=== PATIENT | female | born 1965 | race Caucasian/White ===

== ENCOUNTER 2018-07-13 06:38 | Inpatient (IN) ==
[2018-07-13] MEDS ORDERED: Metoprolol Tartrate 25 MG Tablet PO ONE (07:45)
[2018-07-13] MEDS ORDERED: Chlorhexidine 4% Topical 120 APPLIC/120 ML Bottle TOPICAL SCH (07:45)
[2018-07-13] MEDS ORDERED: Chlorhexidine Gluconate 2% 1 Pack (2 Cloths) TOPICAL ONE (07:45)
[2018-07-13] MEDS ORDERED: Sodium Chlor 0.9% Inj 500 ML IV.CONT ONE (07:45)
[2018-07-13] MEDS ORDERED: Vancomycin Inj 1,000 MG in Sodium Chlor 0.9% Inj 250 ML IV.SIG SCH (08:00)
[2018-07-13] MEDS ORDERED: Dexamethasone Inj 20 MG/5 ML Vial IV.PUSH ONE (08:00)
[2018-07-13] MEDS ORDERED: fentaNYL Citrate Inj 100 MCG/2 ML Ampul ONE ×2 (08:20→13:09)
[2018-07-13] MEDS ORDERED: Bupivacaine Liposomal PF 1.3% Inj 20 ML Vial ONE (08:21)
[2018-07-13] MEDS ORDERED: ceFAZolin 2 GM Premix Inj 2 GM/50 ML PIGGYBACK IV.SIG SCH (08:30)
[2018-07-13] MEDS ORDERED: Sodium Chlor 0.9% Inj 73.07 ML, Ropivacaine 0.5% PF Inj 24.63 ML, Ketorolac Inj 30 MG, ... P-ARTICULR SCH ×5 (08:30)
[2018-07-13] MEDS ORDERED: SODIUM CHLOR 0.9% IV.SIG SCH ×2 (09:00→13:00)
[2018-07-13] MEDS ORDERED: TRANEXAMIC ACID IV.SIG SCH ×2 (09:00→13:00)
[2018-07-13] MEDS ORDERED: Aluminum/Magnesium/Simethacone Susp 30 ML UDC PO PRN (11:52)
[2018-07-13] MEDS ORDERED: Morphine Inj 4 MG/ML Vial IV.PUSH PRN (11:52)
[2018-07-13] MEDS ORDERED: Bisacodyl 10 MG Supp RECTAL PRN (11:52)
[2018-07-13] MEDS ORDERED: Post-op Orders (for Pharmacy) OTHER STA (11:52)
--- NOTE | 2018-07-13 11:55 | P.OP ---
- Preoperative Diagnosis (1) Primary localized osteoarthritis of right knee - Postoperative Diagnosis (1) Primary localized osteoarthritis of right knee Date of procedure: 07/13/18 Procedure: Right total knee arthroplasty [facility], [facility] Surgeon: Charli Villalobos MD Grain Merchandiser: SHELIA Ying The surgical procedure was assisted by my Advanced Registered Nurse Practitioner. My PROPERTY TECHNICIAN presence was necessary throughout this case for the manipulation and positioning of the surgical extremity. My PROPERTY TECHNICIAN was assisting me throughout the duration of this procedure. The skill set of an Advance Registered Nurse Practitioner was medically necessary to complete this procedure. During the surgical case, the surgical technician was working at the back table and the Advance Registered Nurse Practitioner was directly assisting me. Operation and Findings: IMPLANTS: DePuy Attune: Patella: size 32. Femur, posterior stabilized size 6. Tibia, rotating platform size 5. Tibial insert, rotating platform, posterior stabilized size 6 mm thickness. ESTIMATED BLOOD LOSS: 150 cc TOURNIQUET TIME: 39 minutes at 250 mmHg pressure. JUSTIFICATION FOR PROCEDURE: The patient has end-stage osteoarthritis to the knee. There is an attached conservative measures pathway form in the chart that describes the nonoperative measures that were undertaken prior to consideration of surgical management. The patient understood the risks and benefits of surgical management. See my office notes for further details PROCEDURE: The patient was brought back to the operative theatre. Adequate anesthesia was obtained. The patient received intravenous vancomycin and Ancef. The lower extremity was prepped and draped in the usual sterile fashion.The leg was exsanguinated, the tourniquet was raised. A standard anterior incision was performed followed by medial parapatellar arthrotomy was performed. End-stage arthritis was identified. Osteotomy of the patella was performed. We drilled holes for the patella. We trialed the patella component. We placed an intramedullary guide into the distal femur. We ultimately resected 13 mm off of the distal femur in 5 degrees of valgus. The remnants of the ACL and PCL were resected. Osteotomy of the proximal tibia was performed, resecting 5 mm off of the medial side. This was done with 3 degrees of posterior slope using an extramedullary guide. The distal end of the guide was placed in the mid aspect of the ankle. The femur was sized, and four chamfer cuts were completed in 3 of external rotation. We then cut the central box in the distal femur to replace the PCL. We resected the remnants of the menisci and removed osteophytes off of the femur and tibia. We then trialed the knee. We punched the tibia for the keel, and then used standard technique to cement in components. Excess cement was removed. We trialed the knee again and the final polyethylene thickness was chosen to provide extension to 0 degrees, and flexion of 140 degrees to gravity. The ligaments were appropriately balanced. Lateral release was necessary to obtain excellent patellofemoral tracking. The tourniquet was released and adequate hemostasis was obtained. An intra- articular injection of a ropivacaine cocktail was injected. The posterior knee was inspected for excess cement, which was removed. The final polyethylene was put into position after thorough irrigation. We then closed deep fascia with a #2 Stratafix followed by skin with 2-0 Vicryl followed by Dermabond dressing. Postop plan is to weight-bear as tolerated. DVT prophylaxis will be performed with SCDs, JESSY hose, early mobilization, and aspirin.
[2018-07-13] MEDS ORDERED: *Meperidine Inj 25 MG/ML Vial PERIprocedural Use ONLY ONE (12:26)
[2018-07-13] MEDS: Sod Chloride 0.9% Inj 1,000 ML IV.CONT SCH (12:45)
--- NOTE | 2018-07-13 12:53 | XR ---
EXAM DATE: 07/13/2018 12:47 PM EST AGE/SEX: 52 years / Female INDICATIONS: Post op, right total knee replacement. CLINICAL DATA: This is the patient's initial encounter. Patient reports that signs and symptoms have been present for 1 day and indicates a pain score of 4/10. MEDICAL/SURGICAL HISTORY: None. None. COMPARISON: No prior exams available for comparison. FINDINGS: AP and lateral views of the right knee were obtained and demonstrate the patient is status post arthr oplasty. The femoral acetabular components are intact and in normal alignment. There are postoperativ e change involving the patella. There is soft tissue swelling and gas noted. CONCLUSION: Expected postoperative changes status post arthroplasty. Electronically signed by: Jr Alexis MD 07/13/2018 12:52 PM EST
[2018-07-13] MEDS ORDERED: *morphine SULFATE 10 MG/ML PERIprocedure ONLY ONE (13:15)
[2018-07-13] MEDS: ceFAZolin 1 GM Premix Inj 1 GM/50 ML PIGGYBACK IV.SIG SCH ×2 (15:45→22:02)
--- NOTE | 2018-07-13 16:19 | P.DCO ---
- Physical Therapy Physical Therapy: Gait training, Transfer training, bed to chair Knee: Total knee Right Lower Extremity Weight Bearing: Weight bearing as tolerated Right Lower Extremity Range of Motion: Active ROM - Nursing Dressing changes: Do not change dressing Additional instructions: First dressing change in the office - Certification Need for Home Health services: I have seen patient Megan Peraza on 07/13/18. My clinical findings support the need for the requested home health care services because: Need for Home Health Services: Limited ability to care for self, High risk of falls Homebound Certification: I certify that my clinical findings support that this patient is homebound because: Homebound Certification: Post-op weakness, Unsteady gait/balance
[2018-07-13] MEDS: Gabapentin 400 MG Capsule PO SCH ×2 (18:03→18:11)
[2018-07-13] MEDS: buPROPion 150 MG 12 HR Tablet PO SCH (20:09)
[2018-07-13] MEDS: Duloxetine 60 MG DR Capsule PO SCH (20:09)
[2018-07-13] MEDS: Multivitamin/Minerals Therapeutic Tablet PO SCH (20:10)
[2018-07-13] MEDS: Senna/Docusate Sodium 8.6/50 MG Tablet PO SCH (20:10)
[2018-07-13] MEDS ORDERED: traZODone 100 MG Tablet PO SCH (21:00)
[2018-07-13] MEDS ORDERED: Zolpidem Tartrate 5 MG Tablet PO PRN (21:00)
[2018-07-14] MEDS: ceFAZolin 1 GM Premix Inj 1 GM/50 ML PIGGYBACK IV.SIG SCH (05:45)
[2018-07-14] MEDS: Sod Chloride 0.9% Inj 1,000 ML IV.CONT SCH (05:46)
[2018-07-14 05:48] LABS: Hematocrit 28.7 % (35.0-46.0); Hemoglobin 10.1 gm/dL (11.6-15.3)
--- NOTE | 2018-07-14 07:36 | P.PNOP ---
Subjective Interval history: The patient is resting comfortably in bed in no acute distress. The patient reports only mild pain to the right knee. The patient does report she would like to be discharged today with home health. Physical Exam Vital signs: Vital Signs 07/13/18 08:08 07/13/18 12:20 07/13/18 12:30 Temperature 98.4 F 98.5 F Pulse Rate 82 92 H 86 Respiratory Rate 17 16 16 Blood Pressure 112/56 L 131/60 121/57 L Pulse Oximetry 97 98 96 07/13/18 12:45 07/13/18 13:00 07/13/18 13:15 Temperature Pulse Rate 84 78 80 Respiratory Rate 16 16 16 Blood Pressure 109/59 L 113/63 109/63 Pulse Oximetry 95 95 95 07/13/18 13:30 07/13/18 14:00 07/13/18 14:30 Temperature Pulse Rate 80 78 78 Respiratory Rate 16 16 16 Blood Pressure 106/64 115/63 112/56 L Pulse Oximetry 96 96 96 07/13/18 15:00 07/13/18 16:00 07/13/18 17:00 Temperature 97.6 F Pulse Rate 74 84 80 Respiratory Rate 16 16 18 Blood Pressure 110/60 101/70 110/57 L Pulse Oximetry 96 96 95 07/13/18 19:38 07/14/18 00:14 07/14/18 04:05 Temperature 98.5 F 98.3 F 97.9 F Pulse Rate 91 H 75 77 Respiratory Rate 17 17 18 Blood Pressure 104/51 L 118/60 95/49 L Pulse Oximetry 95 96 95 Intake & Output 07/13/18 07/14/18 07/14/18 18:59 06:59 18:59 Intake Total 2849.62 / 2849.62 1180 / 1180 Output Total 400 / 400 Balance 2449.62 / 2449.62 1180 / 1180 Weight 86.273 kg 94.3 kg Intake: IV 458.62 / 458.62 100 / 100 Cyklokapron Inj 862 MG In NS 108.62 / 108.62 Inj 100 ML @ 200 mls/hr IV.SIG ONCE WIL Rx#:[id number] Vancomycin Inj 1,000 MG In NS 250 / 250 Inj 250 ML @ 250 mls/hr IV.SIG ANAESTHETIC TECHNICIAN WIL Rx#:[id number] Ancef 1 GM Premix Inj 1 gm In 50 / 50 100 / 100 50 ml @ 100 mls/hr IV.SIG Q6H WIL Rx#:[id number] Ancef 2 GM Premix Inj 2 gm In 50 / 50 50 ml @ 100 mls/hr IV.SIG ANAESTHETIC TECHNICIAN WIL Rx#:[id number] Oral 800 / 800 1080 / 1080 Anesthesia Amount 1591 / 1591 Output: Urine 200 / 200 Estimated Blood Loss 200 / 200 Other: # Voids 1 2 Date of Last Bowel Movement 07/12/18 07/12/18 # Bowel Movements 0 Weight On Admission 86.273 kg Narrative: The patient's dressing is clean, dry, and intact. EHL/TA/G are intact. 2+ pedal pulse. The patient's calf is soft and nontender. Sensation is intact to light touch distally. Results - Labs CBC & Chem 7: 07/14/18 05:25 Laboratory Results - last 24 hr 07/13/18 07/14/18 07:56 05:25 Hgb 10.1 L Hct 28.7 L Blood Type A Negative Blood Type Recheck Required Antibody Screen Negative - Imaging Impressions Knee X-Ray 07/13/18 11:52 CONCLUSION: Expected postoperative changes status post arthroplasty. - Procedures Right total knee arthroplasty Assessment and Plan - Problem List (1) Primary localized osteoarthritis of right knee Code(s): M17.11 - Unilateral primary osteoarthritis, right knee Status: Acute (2) Status post total knee replacement, right Code(s): Z96.651 - Presence of right artificial knee joint Status: Acute - Assessment and Plan POD #1: [Right] total knee arthroplasty 1. Weightbearing as tolerated on [right] lower extremity. 2. Aspirin 81 mg twice daily for DVT prophylaxis. 3. Ice as needed for swelling. 4. Stable per ortho for discharge to home health today following her class. 5. The patient will follow up with Dr. Villalobos and/or SHELIA Leslie as previously scheduled.
[2018-07-14] MEDS ORDERED: Dexamethasone Inj 20 MG/5 ML Vial IV.PUSH ONE (08:00)
[2018-07-14 08:16] VITALS: PULSE 85
[2018-07-14] MEDS: Senna/Docusate Sodium 8.6/50 MG Tablet PO SCH (08:21)
[2018-07-14] MEDS: Gabapentin 400 MG Capsule PO SCH ×2 (08:21→12:47)
[2018-07-14] MEDS: buPROPion 150 MG 12 HR Tablet PO SCH (08:22)
[2018-07-14] MEDS: Multivitamin/Minerals Therapeutic Tablet PO SCH (08:22)
[2018-07-14] MEDS: Duloxetine 60 MG DR Capsule PO SCH (08:22)
[2018-07-14] MEDS ORDERED: Pantoprazole Sodium 20 MG DR Tablet PO SCH (09:00)
[2018-07-14] MEDS ORDERED: Loratadine 10 MG Tablet PO SCH (09:00)
[2018-07-14 12:36] VITALS: BP 102/56; RESP 17; TEMP 98.1; O2SAT 97
--- NOTE | 2018-07-15 14:15 | P.DS ---
Date of admission: 07/13/18 06:38 Primary care physician: [facility] Attending physician on discharge: Charli Villalobos Anticipated date of discharge: 07/14/18 Brief History from admission: The patient was admitted to the hospital for severe OA of the right knee to have a right TKA. DS: Diagnosis - Discharge Diagnosis (1) Primary localized osteoarthritis of right knee Status: Acute (2) Status post total knee replacement, right Status: Acute DS: Summary Hospital Course: The patient was admitted to the hospital for severe osteoarthritis of the [right ] knee to have a [right] total knee arthroplasty. The patient's surgery went well with no complication. The patient is on a [regular] diet. The patient's DVT prophylaxis includes use of [ASA 81 mg BID]. The patient is weightbearing as tolerated. The patient was discharged [home with home health] and will follow up in the office with Dr. Villalobos and/or SHELIA Leslie as previously scheduled. - Time Spent with Patient Total time spent providing and/or coordinating discharge services: Greater than 30 minutes - Quality: VTE Deep Vein Thrombosis/Pulmonary Embolism Present on Admission: No Exam Vital signs: Intake & Output 07/14/18 07/15/18 07/15/18 18:59 06:59 18:59 Other: Date of Last Bowel Movement 07/12/18 Narrative: The patient's dressing is clean, dry, and intact. EHL/TA/G are intact. 2+ pedal pulse. The patient's calf is soft and nontender. Sensation is intact to light touch distally. Results Procedures completed during hospitalization: Right total knee arthroplasty - Impressions ITS Impressions Knee X-Ray 07/13/18 11:52 CONCLUSION: Expected postoperative changes status post arthroplasty. Discharge Plan - Discharge Disposition Patient Disposition: W/Home Health Service - Discharge Condition Condition: Stable - Discharge Order Discharge Orders: Discharge Order (Routine); Ordered 07/13/18 Ordered By: Jerman Wallace - Discharge Details Anticipated Discharge Date: 07/14/18 - Physicians Team Primary Care Provider: [facility] Attending Provider: Charli Villalobos Other Providers: Nurse Oncall,Agency - Rxs /Orders / Referrals /Forms Prescriptions: Continue bupropion HCl 300 mg Tablet Extended Release 24 Hr 300 mg PO QAM cyclobenzaprine 10 mg Tablet 10 mg PO HS duloxetine 60 mg Capsule,Delayed Release(Dr/Ec) 60 mg PO BID gabapentin 400 mg Capsule 400 mg PO TID loratadine 10 mg Capsule 10 mg PO DAILY omeprazole 20 mg Tablet,Delayed Release (Dr/Ec) 20 mg PO DAILY trazodone 100 mg Tablet 100 mg PO HS Discontinued meloxicam [Mobic] 15 mg Tablet 15 mg PO HS Ambulatory Orders / Order Sets / DME: Adjustable Commode 3-in-1 (1 each) (Routine) Location: Determined by Patient Ordered By: Jerman Wallace CPM - Continuous Passive Motion Machine (1 each) (Routine) Location: Determined by Patient Ordered By: Jerman Wallace Walker With Front Wheels (1 each) (Routine) Location: Determined by Patient Ordered By: Jerman Wallace Referrals: Nurse [facility] [employer] [Outside] - See Instructions Charli Villalobos MD [Physician] - See Instructions (f/u in the office with Dr Villalobos or Shakir Wallace APRN as previously scheduled. ) [facility] [Primary Care Provider] - See Instructions - Discharge Instructions Patient Printed Instructions: How to Choose and Use a Walker (GEN), Continuous Passive Motion Machine (DC), Knee Replacement (DC) Additional Instructions: Full weight bearing Wear Canvas Knee splint at night while in bed Follow up with Dr Villalobos on 07/25 at 8:20 am at [facility] office Home meds for pain and anticoagulation provided for instructions to patient prior to admission from surgeons office. Take medications as prescribed. - Post Discharge Care Plan Care Plan Goals: Discharge Care Plan Goals for Total Knee Replacement You have undergone knee replacement surgery. Your doctor replaced your painful joint with an artificial joint to relieve pain and restore movement. Here are some goals to help you heal well. Directions to Meet your Goals: 1. Activity & Exercises: * Take pain medicine as directed by your doctor. * Sit in chairs with arms. The arms make it easier for you to stand up or sit down. * Dont sit for more than 30 to 45 minutes at one time. * Nap if you are tired, but dont stay in bed all day. * Sleep with a pillow under your ankle, not your knee. Be sure to change the position of your leg during the night. * Wear the support stockings you were given in the hospital as directed by your surgeon. 2. Prevent Falls/Injury: The flanagan to successful recovery is movement with walking and exercising your knee as directed by your doctor. * Arrange your household to keep the items you need handy. Keep everything else out of the way. * Remove items that may cause you to fall, such as throw rugs and electrical cords. * Use nonslip bath mats, grab bars, an elevated toilet seat, and a shower chair in your bathroom * Sit on a shower stool or chair when you shower to keep from falling. * Until your balance, flexibility, and strength improve, use a cane, crutches, a walker, handrails, or someone to help you. * Keep your hands free by using a backpack, alvin pack, apron, or pockets to carry things * Walk up and down stairs with support. Try one step at a time. Use the railing if possible. * Dont drive until your doctor says its OK. * Dont drive while you are taking opioid pain medicine. 3. Precautions: * Prevent infection. Any infection will need to be treated immediately. Call your doctor right away if you think you might have an infection. * Tell your dentist that you have an artificial joint and take antibiotics as prescribed before any dental work. * Tell all your healthcare providers about your artificial joint before any medical procedure. * Maintain a healthy weight. Get help to lose any extra pounds. Added body weight puts stress on the knee. * Your medications may include blood-thinning medicine to prevent blood clots or antibiotics to prevent infection-prevent any falls or cuts 4. Incision Care: * Prevent infection by washing your hands often. If an infection occurs, it will need to be treated right away. * Call your doctor right away if you think you may have an infection. Symptoms include a fever or an incision that leaks white, green, or yellow fluid. * Don't soak your incision in water until your doctor says its OK. This means no hot tubs, bathtubs, or swimming pools. * Follow your doctor's instructions for changing the dressing. * Dont rub the incision, or apply creams or lotions to it. * If you notice any redness or drainage around the bandage site, contact your surgeon's office immediately. 5. Follow-Up: Do Not miss your follow-up appointment. Keep up with all your appointments and yearly check ups When to call your doctor: Call your doctor right away if you have: Fever of 100.4F (38C) or higher, or as directed by your doctor Shaking chills Stiffness, or inability to move the knee Increased swelling in your leg Increased redness, tenderness, or swelling in or around the knee incision Drainage from the knee incision Increased knee pain Call 911: Call 911 right away if you have: Chest pain Shortness of breath Any pain or tenderness in your calf
== END 2018-07-14 14:24 | disposition home health service (06) ==
LOC: HSDI 06:38 → N06 16:30
PROVIDERS: ADMIT Orthopaedic Surgery; ATTEND Orthopaedic Surgery